=== PATIENT | female | born 1950 | race Caucasian/White ===

== ENCOUNTER 2023-11-20 08:00 | Outpatient (RCR) | payer MEDICARE, SELFPAY | END 2023-11-26 07:25 | disposition home or self-care (01) | LOC: PT 08:00 | PROVIDERS: Visit Provider Internal Medicine | DX: M54.50 Low back pain, unspecified (principal) | CPT/HCPCS: 97010; 97014; 97110; 97140; 97163; 97164; 97530; G0283 ==